=== PATIENT | female | born 1985 | race African-American/Black ===

== ENCOUNTER → 2017-09-27 | Outpatient (CLI) | payer OTHER ==
[2017-09-27] MEDS: LIDOCAINE 1% Multi-Dose 20 ML VIAL. ID ×2 (15:51)
[2017-09-27] MEDS: GADOBUTROL 7.5 MMOL/7.5 ML VIAL INT ART ×2 (15:51)
[2017-09-27] MEDS: IOHEXOL 300 MG/ML 50 ML VIAL. INT ART ×2 (15:51)
== END | disposition home or self-care (01) ==
LOC: KCIC 14:27
DX: S73.101A Unspecified sprain of right hip, initial encounter (principal); Z91.041 Radiographic dye allergy status; X58.XXXA Exposure to other specified factors, initial encounter; Y93.89 Activity, other specified; Y92.89 Other specified places as the place of occurrence of the external cause; Y99.8 Other external cause status
CPT/HCPCS: 73525; 73722; A9585; Q9967